=== PATIENT | female | born 1965 | race Caucasian/White ===

== ENCOUNTER → 2018-04-22 08:16 | Outpatient (CLI) | payer OTHER, SELFPAY ==
--- NOTE | 2018-04-22 08:19 | BI_ITS ---
MAMMOGRAPHY - BILATERAL SCREENING REASON FOR EXAM: Female, 52 years old. Routine annual screening examination. PERTINENT HISTORY: Grandmother with breast cancer. TECHNIQUE: Digital bilateral breast delisa (3D mammographic acquisition) in the CC and MLO projections. 2-D mediolateral oblique (MLO) and craniocaudad (CC) views of both breasts were obtained. CAD: Full Field Digital Mammography with Computer Added Detection was performed. COMPARISON: Comparison is made with prior study dated August 14, 2016 and May 19, 2015. FINDINGS: Breast Composition: The breasts are heterogeneously dense, which may obscure small masses. There are no dominant masses or suspicious calcifications. I suspect a 6.9 mm x 7.4 mm well-defined nodule in the retroareolar region of the left breast. Correlation with ultrasound is recommended. No other significant abnormalities are identified. BI/SCREENING MAMM (CAD), BILAT IMPRESSION: I suspect a 6.9 mm x 7.4 mm well-defined nodule in the retroareolar region of the left breast. Correlation with ultrasound is recommended. ASSESSMENT CATEGORY: BIRADS Category 0: Incomplete. Need additional imaging evaluation. A letter regarding these results will be sent to the patient by the facility within 30 days. Approximately 10% of breast cancers are not detected by mammography. A normal mammogram should not delay biopsy of a clinically suspicious abnormality. [id number] Electronically Signed: Arvind Clemens MD at 11:14 EDT Tel [phone], Service support ,
== END ==
PROVIDERS: Family Provider Family Medicine; PCP Family Medicine; Visit Provider Family Medicine
DX: Z12.31 Encounter for screening mammogram for malignant neoplasm of breast (principal)
CPT/HCPCS: 77063; 77067

== ENCOUNTER → 2018-04-27 10:53 | Outpatient (CLI) | payer OTHER, SELFPAY ==
--- NOTE | 2018-04-27 10:59 | US_ITS ---
STUDY: ULTRASOUND BREAST - LEFT REASON FOR EXAM: Female, 52 years old. Abnormal screening mammogram. TECHNIQUE: Axial and longitudinal images of the LEFT breast were performed with a high resolution ultrasound transducer. COMPARISON: Comparison is made with prior mammogram dated April 22, 2018. FINDINGS: LEFT Breast: There is evidence of dilated subareolar ducts. US/Breast Limited Unilateral IMPRESSION: Dilated subareolar ducts. ASSESSMENT CATEGORY: BIRADS Category 2: Benign. A letter regarding these results will be sent to the patient by the facility within 30 days. Electronically Signed: Arvind Clemens MD at 14:20 EDT Tel [phone], Service support ,
== END ==
PROVIDERS: Family Provider Family Medicine; PCP Family Medicine; Referring Provider Family Medicine; Visit Provider Family Medicine
DX: R92.8 Other abnormal and inconclusive findings on diagnostic imaging of breast (principal)
CPT/HCPCS: 76642

== ENCOUNTER → 2018-08-07 08:21 | Outpatient (CLI) | payer OTHER, SELFPAY ==
[2018-08-07 09:17] LABS: Absolute Lymphocyte Count 2.64 X10^3/ul (0.83-4.51); Absolute Neutrophil Count 3.8 X10^3/uL (2.0-7.7); Basophil# 0.03 X10^3/uL; Basophil% 0.4 % (0-1); Eosinophils% 4.1 % (0-5); Hematocrit 42.9 % (37-47); Hemoglobin 13.8 g/dl (12.0-15.0); Lymphocyte # 2.64 X10^3/ul (4.0); Lymphocyte % 36.2 % (19-41); Mean Corp Hgb Conc 32.2 g/gl (32-36); Mean Corpuscular Hgb 29.6 pg (27.0-32.0); Mean Corpuscular Volume 92.1 fL (81-99); Mean Platelet Vol. 10.5 fl (6.2-12.0); Monocyte# 0.57 X10^3/uL; Monocyte% 7.8 % (0-10); Neutrophil # 3.75 X10^3/uL (2.7-7.7); Neutrophil % 51.4 % (47-70); Platelet Count 294 K/mm3 (150-450); RBC Distribution Width CV 12.9 % (11.6-14.6); RBC Distribution Width SD 43.1 fl (35.1-43.9); Red Blood Count 4.66 M/mm3 (4.2-5.4); White Blood Count 7.3 K/mm3 (4.4-11.0)
[2018-08-07 09:18] LABS: POSITIVE COUNT NO; POSITIVE DIFFERENTIAL NO; POSITIVE MORPHOLOGY NO
[2018-08-07 09:30] LABS: Hemoglobin A1c 7.9 % (4.2-6.3)
[2018-08-07 09:41] LABS: ALB/GLOB Ratio 0.9 RATIO (0.9-2.4); AST(SGOT) 31 U/L (15-37); Alanine Aminotransfer ALT/SGPT 52 U/L (13-56); Albumin, Serum 3.6 g/dL (3.2-5.0); Alkaline Phosphatase 106 U/L (45-117); Anion Gap 6 (5-15); BUN 17 mg/dL (7-18); BUN/Creat Ratio 18.7 RATIO (10-20); Calcium,Total 8.6 mg/dL (8.5-10.1); Chloride 107 mmol/L (98-107); Cholesterol 269 mg/dL (200); Creatinine, Serum 0.91 mg/dL (0.55-1.02); EST Glomerular Filtration Rate 68 mL/min (>60); Est Glom Filt Rate - Afr Amer 82 mL/min (>60); Globulin 4.2 g/dL (2.2-4.2); Glucose 135 mg/dL (74-106); High Density Lipoprotein 41 mg/dL; Potassium 4.4 mmol/L (3.5-5.1); Protein, Total 7.8 g/dL (6.4-8.2); Sodium Level 140 mmol/L (136-145); Triglycerides 290 mg/dL; Very Low Density Lipoprotein 58 mg/dL (5-40)
== END ==
PROVIDERS: Family Provider Family Medicine; PCP Family Medicine; Referring Provider Family Medicine; Visit Provider Family Medicine
DX: E11.9 Type 2 diabetes mellitus without complications (principal); E78.5 Hyperlipidemia, unspecified; R53.83 Other fatigue; Z51.81 Encounter for therapeutic drug level monitoring
CPT/HCPCS: 36415; 80053; 80061; 83036; 85025

== ENCOUNTER → 2018-11-06 | Outpatient (CLI) | payer OTHER, SELFPAY ==
[2018-11-06 07:54] LABS: Cholesterol 279 mg/dL (200); High Density Lipoprotein 45 mg/dL; Triglycerides 249 mg/dL; Very Low Density Lipoprotein 50 mg/dL (5-40)
[2018-11-06 09:20] LABS: Hemoglobin A1c 6.9 % (4.2-6.3)
== END | disposition home or self-care (01) ==
PROVIDERS: Family Provider Family Medicine; PCP Family Medicine; Referring Provider Family Medicine; Visit Provider Family Medicine
DX: E78.5 Hyperlipidemia, unspecified (principal); E11.9 Type 2 diabetes mellitus without complications
CPT/HCPCS: 36415; 80061; 83036

== ENCOUNTER → 2019-06-24 07:52 | Outpatient (CLI) | payer OTHER, SELFPAY ==
--- NOTE | 2019-06-24 07:54 | BI_ITS ---
MAMMOGRAPHY - BILATERAL SCREENING REASON FOR EXAM: Female, 53 years old. Routine annual screening examination. PERTINENT HISTORY: Grandmother with breast cancer. TECHNIQUE: Digital bilateral breast chapincito (3D mammographic acquisition) in the CC and MLO projections. 2-D mediolateral oblique (MLO) and craniocaudad (CC) views of both breasts were obtained. CAD: Full Field Digital Mammography with Computer Added Detection was performed. COMPARISON: Comparison is made with prior mammogram dated April 22, 2018 and August 14, 2016. FINDINGS: Breast Composition: The breasts are heterogeneously dense, which may obscure small masses. There are no dominant masses or suspicious calcifications. Stable 7 mm well-defined nodule in the retroareolar region of the left breast prior ultrasound demonstrated this to be dilated retroareolar areolar ducts. No other significant abnormalities are identified. There has been no significant change since the prior study. BI/SCREEN MAMM (CAD) W/CHAPINCITO BILAT IMPRESSION: Stable bilateral screening mammogram. Yearly follow-up mammogram recommended. (A) ASSESSMENT CATEGORY: BIRADS Category 2: Benign. A letter regarding these results will be sent to the patient by the facility within 30 days. Approximately 10% of breast cancers are not detected by mammography. A normal mammogram should not delay biopsy of a clinically suspicious abnormality. [id number] Electronically Signed: Arvind Clemens, at 9:25 EST , Service support ,
== END ==
PROVIDERS: Family Provider Family Medicine; PCP Family Medicine; Referring Provider Family Medicine; Visit Provider Family Medicine
DX: Z12.31 Encounter for screening mammogram for malignant neoplasm of breast (principal)
CPT/HCPCS: 77063; 77067

== ENCOUNTER → 2020-05-24 08:11 | Outpatient (CLI) | payer OTHER, SELFPAY ==
[2020-05-24 12:26] LABS: Absolute Lymphocyte Count 2.45 X10^3/uL (0.83-4.51); Absolute Neutrophil Count 3.5 X10^3/uL (2.0-7.7); Basophil# 0.05 X10^3/uL; Basophil% 0.7 % (0-1); Eosinophil# 0.23 X10^3/uL; Eosinophils% 3.4 % (0-5); Hematocrit 41.9 % (37-47); Hemoglobin 13.5 g/dL (12.0-15.0); Lymphocyte # 2.45 X10^3/ul (4.0); Lymphocyte % 36.4 % (19-41); Mean Corp Hgb Conc 32.2 g/dL (32-36); Mean Corpuscular Hgb 30.3 pg (27.0-32.0); Mean Corpuscular Volume 93.9 fL (81-99); Mean Platelet Vol. 10.3 fl (6.2-12.0); Monocyte# 0.51 X10^3/uL; Monocyte% 7.6 % (0-10); NRBC Flagged by Analyzer 0 % (0-5); Neutrophil # 3.49 X10^3/uL (2.7-7.7); Neutrophil % 51.8 % (47-70); Platelet Count 324 K/mm3 (150-450); RBC Distribution Width SD 41.8 fl (35.1-43.9); Red Blood Count 4.46 M/mm3 (4.2-5.4); White Blood Count 6.7 K/mm3 (4.4-11.0)
[2020-05-24 12:58] LABS: AST(SGOT) 27 U/L (15-37); Alanine Aminotransfer ALT/SGPT 58 U/L (13-56); Albumin, Serum 3.7 g/dL (3.2-5.0); Alkaline Phosphatase 115 U/L (45-117); Anion Gap 5 (5-15); BUN 12 mg/dL (7-18); BUN/Creat Ratio 11.8 RATIO (10-20); Calcium,Total 8.8 mg/dL (8.5-10.1); Chloride 107 mmol/L (98-107); Cholesterol 300 mg/dL (200); Creatinine, Serum 1.02 mg/dL (0.55-1.02); EST Glomerular Filtration Rate 59 mL/min (>60); Est Glom Filt Rate - Afr Amer 72 mL/min (>60); Globulin 3.8 g/dL (2.2-4.2); Glucose 144 mg/dL (74-106); High Density Lipoprotein 36 mg/dL; Protein, Total 7.5 g/dL (6.4-8.2); Sodium Level 139 mmol/L (136-145); Triglycerides 417 mg/dL
== END ==
PROVIDERS: PCP Family Medicine; Visit Provider Family Medicine
DX: E11.9 Type 2 diabetes mellitus without complications (principal); R53.83 Other fatigue
CPT/HCPCS: 36415; 80053; 80061; 83036; 85025

== ENCOUNTER → 2020-06-27 08:00 | Outpatient (CLI) | payer OTHER, SELFPAY ==
--- NOTE | 2020-06-27 08:02 | BI_ITS ---
MAMMOGRAPHY - BILATERAL SCREENING REASON FOR EXAM: Female, 54 years old. Routine annual screening examination. PERTINENT HISTORY: Grandmother with breast cancer. TECHNIQUE: Digital bilateral breast chapincito (3D mammographic acquisition) in the CC and MLO projections. 2-D mediolateral oblique (MLO) and craniocaudad (CC) views of both breasts were obtained. CAD: Full Field Digital Mammography with Computer Added Detection was performed. COMPARISON: Comparison is made with prior study dated 06/24/2019 and 04/22/2018. FINDINGS: Breast Composition: The breasts are heterogeneously dense, which may obscure small masses. There are no dominant masses or suspicious calcifications. Stable 7 mm well-defined nodule in the retroareolar region of the left breast. Prior sonogram demonstrated left retroareolar ductal dilatation. No other significant abnormalities are identified. There has been no significant change since the prior study. BI/SCREEN MAMM (CAD) W/CHAPINCITO BILAT IMPRESSION: Stable bilateral screening mammogram. Yearly follow-up mammogram recommended. (A) ASSESSMENT CATEGORY: BIRADS Category 2: Benign. A letter regarding these results will be sent to the patient by the facility within 30 days. Approximately 10% of breast cancers are not detected by mammography. A normal mammogram should not delay biopsy of a clinically suspicious abnormality. [id number] Electronically Signed: Arvind Clemens, at 9:05 EST , Service support ,
== END ==
PROVIDERS: PCP Family Medicine; Referring Provider Family Medicine; Visit Provider Family Medicine
DX: Z12.31 Encounter for screening mammogram for malignant neoplasm of breast (principal)
CPT/HCPCS: 77063; 77067

== ENCOUNTER → 2020-09-14 09:37 | Outpatient (CLI) | payer OTHER, SELFPAY ==
[2020-09-14 12:12] LABS: Erythrocyte Sedimentation Rate 19 mm/hr (0-30)
[2020-09-14 12:36] LABS: CRP 6.14 mg/L (0.0-3.0); Cholesterol 351 mg/dL (200); High Density Lipoprotein 52 mg/dL; Rheumatoid Factor < 10.0 IU/mL (<15); Triglycerides 189 mg/dL; Very Low Density Lipoprotein 38 mg/dL (5-40)
[2020-09-15 15:24] LABS: ANTINUCLEAR ANTIBODIES DIRECT Negative (Negative)
[2020-09-19 08:49] LABS: CCP IgG Antibodies 10 units (0-19)
== END ==
PROVIDERS: PCP Family Medicine; Visit Provider Family Medicine
DX: E11.9 Type 2 diabetes mellitus without complications (principal); E78.5 Hyperlipidemia, unspecified; E78.1 Pure hyperglyceridemia; M25.50 Pain in unspecified joint
CPT/HCPCS: 36415; 80061; 85652; 86038; 86140; 86200; 86225; 86235; 86431

== ENCOUNTER 2020-09-22 20:33 | Outpatient (RCR) | payer OTHER, SELFPAY ==
[2020-09-22] MEDS: COVID-19 VACC, MRNA(PFIZER)/PF 30 MCG/0.3 ML SYRINGE IM (09:41)
[2020-10-13] MEDS: COVID-19 VACC, MRNA(PFIZER)/PF 30 MCG/0.3 ML SYRINGE IM (09:20)
== END 2020-09-22 23:59 ==
LOC: IMMUN 20:33
PROVIDERS: PCP Family Medicine; Visit Provider Family Medicine
DX: Z23 Encounter for immunization (principal)
CPT/HCPCS: 0001A; 0002A; 91300

== ENCOUNTER 2021-08-31 08:09 | Outpatient (CLI) | payer OTHER, SELFPAY ==
--- NOTE | 2021-08-31 08:23 | BI_ITS ---
MAMMOGRAPHY - BILATERAL SCREENING REASON FOR EXAM: Female, 56 years old. Routine annual screening examination. PERTINENT HISTORY: Grandmother with breast cancer. TECHNIQUE: Digital bilateral breast chapincito (3D mammographic acquisition) in the CC and MLO projections. 2-D mediolateral oblique (MLO) and craniocaudad (CC) views of both breasts were obtained. CAD: Full Field Digital Mammography with Computer Added Detection was performed. COMPARISON: Comparison is made with prior study dated 06/27/2020 and 06/24/2019. FINDINGS: Breast Composition: The breasts are heterogeneously dense, which may obscure small masses. There are no dominant masses or suspicious calcifications. Stable small benign-appearing bilateral axillary lymph nodes. No other significant abnormalities are identified. There has been no significant change since the prior study. BI/SCRN MAMM (CAD)W/CHAPINCITO BILAT IMPRESSION: Stable bilateral screening mammogram. Yearly follow-up mammogram recommended. (A) ASSESSMENT CATEGORY: BIRADS Category 2: Benign. A letter regarding these results will be sent to the patient by the facility within 30 days. Approximately 10% of breast cancers are not detected by mammography. A normal mammogram should not delay biopsy of a clinically suspicious abnormality. [id number] Electronically Signed: Arvind Clemens MD at 10:36 EST ,
== END 2021-08-31 23:59 | disposition home or self-care (01) ==
LOC: OPBI 08:21
PROVIDERS: PCP Family Medicine; Referring Provider Family Medicine; Visit Provider Family Medicine
DX: Z12.31 Encounter for screening mammogram for malignant neoplasm of breast (principal)
CPT/HCPCS: 77063; 77067

== ENCOUNTER 2021-11-21 12:16 | Day surgery (SDC) | payer OTHER, SELFPAY ==
[2021-11-21] MEDS: Lactated Ringers 1,000 ML 15 ML IV (12:40)
[2021-11-21 12:56] VITALS: BP 137/95; PULSE 81; RESP 17; TEMP 36.9; O2SAT 98; BMI 23.8
--- NOTE | 2021-11-21 12:57 | PCM.HP.BLA ---
History and Physical Date of Admission: 11/21/21 Date of Service: 11/01/21 MR#:[id number]:[id number]: JOAQUÍN STEIN #:[id number]:1965 Provider:Ivette Trujillo/Sex: 56/F [facility] Int[facility] Vital Signs 11/01/21 13:12 Height 5 ft 1 in Weight: 131 lb 8 oz BMI 24.8 BP 133/86 H Blood Pressure Location Rt brachial Position Sitting Respiration 18 Pulse 96 Pulse Source NIBP Temp 98.2 F Temp Source Temporal Pulse Oximetry (%) 97 Oxygen Delivery Method room air Intake Visit Reasons: Upper/Lower Scope acid reflux Chief Complaint: GERD/ screening c-scope Strapper And Buffer Required: No Is patient in pain?: No Allergies chlorpromazine HCl [From Thorazine] Adverse Reaction (Verified 11/01/21 13:12) Other prochlorperazine edisylate [From Compazine] Adverse Reaction (Verified 11/01/21 13:12) Other prochlorperazine maleate [From Compazine] Adverse Reaction (Verified 11/01/21 13:12) Other Medications omega-3 fatty acids-fish oil [Fish Oil] 1 ea PO DAILY 06/17/14 [History Confirmed 11/01/21] bismuth subsalicylate 525 mg/15 mL oral suspension 525 mg PO Q30-60M PRN 11/01/21 [History Confirmed 11/01/21] gemfibrozil 600 mg tablet 600 mg PO BID tab 11/01/21 [History Confirmed 11/01/21] metformin 500 mg tablet 500 mg PO BID tab 11/01/21 [History Confirmed 11/01/21] omeprazole 20 mg-sodium bicarbonate 1,680 mg oral packet 1 packet PO DAILY 11/01/21 [History Confirmed 11/01/21] omeprazole 40 mg capsule,delayed release 40 mg PO QDAY #30 cap 11/01/21 [Rx Confirmed 11/01/21] Is last menstrual period known: No Post menopausal: Yes Patient : No PFSH Medical History (Updated 11/02/21 @ 09:[address] Marcie Bui MD) Back pain Diabetes GERD (gastroesophageal reflux disease) Surgical History (Updated 11/01/21 @ 13:10 by Lavinia Benjamin) History of carpal tunnel release History of cholecystectomy History of esophagogastroduodenoscopy (EGD) History of tonsillectomy Family History (Updated 11/01/21 @ 13:11 by Lavinia Benjamin) Mother Asthma Diabetes Thyroid disorder Brother Diabetes Sister Diabetes Hypertension Thyroid disorder Lupus (systemic lupus erythematosus) Father Diabetes CVA (cerebral vascular accident) Social History Smoking Status: Never smoker HPI HPI HPI: JOAQUÍN KEITH, is a 56 F who presents to the office today for EGD & colonoscopy. Patient states that she had an EGD maybe 25 years ago and was put on Aciphex at that time but that did not help so she stopped taking it. Patient is currently taking Zegerid and Pepto updb-glp-yddiiyd. Patient does not take the Zegrid every day but will take it multiple times on some days. Patient states she drinks a bottle of Pepto in about a week. Patient also has sleep with her head elevated due to epigastric pain/burning of her esophagus?typically occurs after eating. Patient states she does have nausea most days. Patient states her PCP tried to send her in some PPI however her insurance did not approve that she has only been taking dyya-cla-tyldylv stuff. Patient is never had a previous colonoscopy. Denies any family history of colon cancer. Patient has bowel movements daily denies any blood. Patient did have her COVID vaccine booster in June. ROS General General: No weight change, appetite, fatigue, colon cancer, breast cancer or weakness HEENT HEENT: No difficulty swallowing, eye injury, eye surgery, swollen glands or hoarseness Endo Endocrine: Yes diabetes mellitus; No thyroid disease, thyroid cancer, Hair loss, heat intolerance or cold intolerance Skin Skin: No rash or changing moles Musc Musculoskeletal: Yes back problems and arthritis; No rheumatoid arthritis or gout Cardio Cardiovascular: No chest pain Psych Psychiatric: No depression or anxiety Resp Respiratory: No shortness of breath and No cough Gastro Gastrointestinal: Yes abdominal pain (occasionally), No nausea or vomiting, No diarrhea, No constipation, No blood in stool, Yes acid reflux, No hemorrhoids, No ulcers, No gallbladder problem and No black,tarry stools Neuro Neurologic: No weakness Exam Const General: cooperative, healthy appearing, comfortable and no acute distress Neck Neck: normal visual inspection Resp Effort & Inspection: normal respiratory effort Cardio Rate: regular rate GI Inspection: non-distended Palpation: soft, no guarding and tender in the epigastrum (mild) Skin General: no rashes or lesions noted Neuro General: patient oriented x3 Psych Affect: normal affect Assessment and Plan Assessment and Plan (1) GERD (gastroesophageal reflux disease): Status: Acute (2) Screening for colon cancer: Status: Acute Plan - Dr. Marcie Bui MD: Did send omeprazole into patient's pharmacy 40 mg p.o. daily as patient to let us know if she is able to get this-- as her Zegrid is quite expensive, also discussed the patient she can get the generic just omeprazole hsep-ond-aglkrgz as well which is cheaper. Also recommend her try famotidine instead of the Pepto for breakthrough. I have discussed the above with the patient. I have offered the patient EGD and colonoscopy for evaluation. I have explained the risks/benefits of the procedure and described the procedure. I have discussed the risks with the patient, including but not limited to: infection, bleeding, perforation of the GI tract requiring emergency surgery, inability to complete the procedure, injury to any internal organs, complications of anesthesia, etc. - the patient understands and agrees to proceed. I have answered all the patient's questions to the patient's satisfaction and the patient has no further questions. The patient has been given instructions for the colon cleansing preparation. 1 day of clears MiraLAX Dulcolax split prep. Marcie Bui M.D. Pager: [phone] [facility] [address] [place] [address], [address] [place] [address] Office: [phone] Plan Details Other Medications: New: omeprazole swallow whole; do not crush, chew, dissolve, cut, break 40 mg PO QDAY 30 caps 4RF Coding Level of Care Code Off vis,new,level 3 Diagnoses GERD (gastroesophageal reflux disease) K21.9 Screening for colon cancer Z12.11 11/02/21 0940<Electronically signed by Marcie Bui MD>Date Marcie Bui MD
[2021-11-21 13:06] LABS: Bedside Glucose 122 mg/dL (74-106)
--- NOTE | 2021-11-21 13:30 | IMM_PTH ---
PATIENT: JOAQUÍN STEIN LOC: EN U#:[id number] AGE/SX: 56/F ROOM: RE11/21/[address]: Dr. Marcie Bui MD : 1965 BED: DIS: 11/21/2021 SPEC #: [id number] RECD: 11/22/21 10:30 STATUS: NOREEN REQ #: [id number] KERI: 11/21/21 13:[address]: Marcie Bui DEPT: IMMUNOHISTOCHEMISTRY RECD BY: Jayda Bee ENTERED: 11/22/21 10:31 SP TYPE: IMMUNO OTHR DR: Dr. Tanika Caban, DO Tissues: A - Stomach, NOS Procedures: H Pylori (initial) PHYSICIAN & INSTITUTION [place] [address] SPECIMEN INFORMATION: Tissue Source: A ? Antrum biopsy Clinical Info: GERD, screening Specimen Number: [id number] CPT code: 23688 METHODOLOGY: Deparaffinized sections of prefer/formalin-fixed tissue or PAP/DQ stained slides are incubated with monoclonal/polyclonal antibodies/oligonucleotide probes. Localization is made via biotin free immunoperoxidase method. Appropriate controls are performed and reacted as expected. Results on target cell population are indicated in the following table: RESULTS: ANTIBODY / CLONE RESULT Block A H Pylori (polyclonal) negative These tests were developed and their performance characteristics determined by [facility]. They may not have been cleared or approved by the U.S. Food and Drug Administration. The FDA has determined that such clearance or approval is not necessary. The above immunohistochemical/dualISH markers are ordered and reviewed by the Pathologist. INTERPRETATION: A. Antrum, biopsy: Negative for Helicobacter pylori organisms. AM:armando 11/23/2021
--- NOTE | 2021-11-21 13:30 | EGD_PTH ---
PATIENT: JOAQUÍN STEIN LOC: EN U#:[id number] AGE/SX: 56/F ROOM: RE11/21/[address]: Dr. Marcie Bui MD : 1965 BED: DIS: 11/21/2021 SPEC #: [id number] RECD: 11/21/21 14:33 STATUS: NOREEN REJose #: [id number] KERI: 11/21/21 13:[address]: Marcie Bui DEPT: SURGICAL PATHOLOGY RECD BY: Sammie Saavedra ENTERED: 11/22/21 07:36 SP TYPE: EGD BIOPSY OT DR: Dr. Tanika Caban, DO Tissues: A - Gastric mucous membrane B - Stomach, NOS Procedures: Special Stain Group II Surgery Specimen Level IV Alcian Blue/PAS (control) HEADER OPERATION: Colonoscopy, EGD ([facility]) with biopsies PRE-OP DIAGNOSIS: GERD, screening TISSUE SUBMITTED: A ? Antrum biopsy for H. pylori and path, B ? GE junction biopsy MICROSCOPIC DIAGNOSIS A. Gastric antrum, biopsy: Chronic gastritis. See comment. B. Gastroesophageal junction, biopsy: No evidence of goblet cell metaplasia. See comment. AM:armando 11/23/2021 COMMENT A. The results of immunohistochemistry for Helicobacter pylori will be reported separately ([id number]). B. Alcian blue/PAS stain with matched control supports the above diagnosis. MICROSCOPIC DESCRIPTION Slides are reviewed. GROSS DESCRIPTION A - Received in fixative is one container labeled with the patient's name and designated antrum biopsy. The specimen consists of one irregular fragment of light pardo soft tissue that measures 0.5 x 0.3 x 0.1 cm. The specimen is totally submitted in one cassette. B - Received in fixative is one container labeled with the patient's name and designated GE junction biopsy. The specimen consists of one irregular fragment of light pardo soft tissue that measures 0.3 x 0.3 x 0.1 cm. The specimen is totally submitted in one cassette. / FRANNY:armando 11/22/2021 TC:3 CPT: 80570 x2, 09797
[2021-11-21 14:15] VITALS: BP 137/95; BP 142/85; PULSE 89; RESP 16; TEMP 36.7; O2SAT 100
--- NOTE | 2021-11-21 14:15 | OP.EGD_ITS ---
Patient Name: Cristina Fonseca Procedure Date: 11/21/2021 1:36 PM Date of : 1965 Age: 56 Procedure: Upper GI endoscopy Indications: Suspected esophageal reflux Providers: Marcie Bui MD Medicines: Monitored Anesthesia Care Patient Profile: This is a 56 year old female. Complications: No immediate complications. Procedure: Pre-Anesthesia Assessment: - Prior to the procedure, a History and Physical was performed, and patient medications and allergies were reviewed. The patient's tolerance of previous anesthesia was also reviewed. The risks and benefits of the procedure and the sedation options and risks were discussed with the patient. All questions were answered, and informed consent was obtained. Prior Anticoagulants: The patient has taken no previous anticoagulant or antiplatelet agents. ASA Grade Assessment: Per anesthesia. After reviewing the risks and benefits, the patient was deemed in satisfactory condition to undergo the procedure. After obtaining informed consent, the endoscope was passed under direct vision. Throughout the procedure, the patient's blood pressure, pulse, and oxygen saturations were monitored continuously. The Colonoscope was introduced through the mouth, and advanced to the second part of duodenum. The upper GI endoscopy was accomplished without difficulty. The patient tolerated the procedure well. Scope In: 1:44:03 PM Scope Out: 1:51:07 PM Total Procedure Duration Time 0 hours 7 minutes 4 seconds Findings: The Z-line was variable. Biopsies were taken with a cold forceps for histology. Biopsies were taken with a cold forceps for histology. Diffuse mildly erythematous mucosa without bleeding was found in the gastric antrum. Biopsies were taken with a cold forceps for histology. Biopsies were taken with a cold forceps for Helicobacter pylori cultures. The examined duodenum was normal. The cardia and gastric fundus were normal on retroflexion. Impression: - Z-line variable. Biopsied. - Erythematous mucosa in the antrum. Biopsied. - Normal examined duodenum. Recommendation: - Await pathology results. - Discharge patient to home. - Resume previous diet. - Continue present medications. Procedure Code(s): --- Professional --- 58717, Esophagogastroduodenoscopy, flexible, transoral; with biopsy, single or multiple Diagnosis Code(s): --- Professional --- K22.8, Other specified diseases of esophagus K31.89, Other diseases of stomach and duodenum CPT copyright 2017 [employer]. All rights reserved. The codes documented in this report are preliminary and upon die developer review may be revised to meet current compliance requirements. MD Marcie Lafleur MD 11/21/2021 2:15:44 PM This report has been signed electronically. Number of Addenda: 0 Note Initiated On: 11/21/2021 1:36 PM
--- NOTE | 2021-11-21 14:16 | OP.CCLET_ITS ---
11/21/2021 Tanika Caban [address] [place] [address] Re : Upper GI endoscopy procedure for Cristina Gao Raymundo Dear Dr. Caban This procedure was performed on Sunday, November 21, 2021. My impressions and recommendations are as follows: Impressions : - Z-line variable. Biopsied. - Erythematous mucosa in the antrum. Biopsied. - Normal examined duodenum. Recommendations : - Await pathology results. - Discharge patient to home. - Resume previous diet. - Continue present medications. My findings are described in the full procedure note, which is enclosed. If I can be of further assistance, please feel free to contact me at Doctor phone number(s): , Work: . Sincerely, MD Marcie Lafleur MD 11/21/2021 2:15:44 PM This report has been signed electronically.
[2021-11-21 14:20] VITALS: BP 137/95; BP 138/88; PULSE 87; RESP 16; O2SAT 100
--- NOTE | 2021-11-21 14:20 | OP.COLON_ITS ---
Patient Name: Cristina Fonseca Procedure Date: 11/21/2021 1:51 PM Date of : 1965 Age: 56 Procedure: Colonoscopy Indications: Screening for colorectal malignant neoplasm Providers: Marcie Bui MD Medicines: Monitored Anesthesia Care Patient Profile: This is a 56 year old female. Last Colonoscopy: none. The patient's first colonoscopy is today. Complications: No immediate complications. Procedure: Pre-Anesthesia Assessment: - Prior to the procedure, a History and Physical was performed, and patient medications and allergies were reviewed. The patient's tolerance of previous anesthesia was also reviewed. The risks and benefits of the procedure and the sedation options and risks were discussed with the patient. All questions were answered, and informed consent was obtained. Prior Anticoagulants: The patient has taken no previous anticoagulant or antiplatelet agents. ASA Grade Assessment: Per anesthesia. After reviewing the risks and benefits, the patient was deemed in satisfactory condition to undergo the procedure. After I obtained informed consent, the scope was passed under direct vision. Throughout the procedure, the patient's blood pressure, pulse, and oxygen saturations were monitored continuously. The Colonoscope was introduced through the anus and advanced to the cecum, identified by the appendiceal orifice, ileocecal valve and palpation. The colonoscopy was performed without difficulty. The patient tolerated the procedure well. The quality of the bowel preparation was good. Scope In: 1:52:14 PM Scope Withdrawal Time 0 hours 11 minutes 28 seconds Scope Out: 2:11:31 PM Total Procedure Duration Time 0 hours 19 minutes 17 seconds Findings: The perianal and digital rectal examinations were normal. The entire examined colon appeared normal on direct and retroflexion views. Impression: - The entire examined colon is normal on direct and retroflexion views. - No specimens collected. Recommendation: - Discharge patient to home. - Resume previous diet. - Continue present medications. - Repeat colonoscopy in 10 years for screening purposes. Procedure Code(s): --- Professional --- G0121, PT, Colorectal cancer screening; colonoscopy on individual not meeting criteria for high risk Diagnosis Code(s): --- Professional --- Z12.11, Encounter for screening for malignant neoplasm of colon CPT copyright 2017 [employer]. All rights reserved. The codes documented in this report are preliminary and upon trading floor operator review may be revised to meet current compliance requirements. MD Marcie Lafleur MD 11/21/2021 2:19:51 PM This report has been signed electronically. Number of Addenda: 0 Note Initiated On: 11/21/2021 1:51 PM
--- NOTE | 2021-11-21 14:21 | OP.CCLET_ITS ---
11/21/2021 Tanika Caban [address] [place] [address] Re : Colonoscopy procedure for Cristina Gao Raymundo Dear Dr. Caban This procedure was performed on Sunday, November 21, 2021. My impressions and recommendations are as follows: Impressions : - The entire examined colon is normal on direct and retroflexion views. - No specimens collected. Recommendations : - Discharge patient to home. - Resume previous diet. - Continue present medications. - Repeat colonoscopy in 10 years for screening purposes. My findings are described in the full procedure note, which is enclosed. If I can be of further assistance, please feel free to contact me at Doctor phone number(s): , Work: . Sincerely, MD Marcie Lafleur MD 11/21/2021 2:19:51 PM This report has been signed electronically.
[2021-11-21 14:30] VITALS: BP 131/83; BP 137/95; PULSE 82; RESP 16; O2SAT 99
[2021-11-21 14:37] VITALS: BP 137/95; BP 138/85; PULSE 83; RESP 16; TEMP 36.9; O2SAT 100
[2021-11-21 14:56] VITALS: BP 137/95
== END 2021-11-21 15:03 | disposition home or self-care (01) ==
LOC: EN 12:28 → AC 12:56
PROVIDERS: PCP Family Medicine; Referring Provider Family Medicine; Visit Provider Surgery
PROC: 0DJD8ZZ Inspection of Lower Intestinal Tract, Via Natural or Artificial Opening Endoscopic (ICD-10-PCS; CPT 45378; principal; 2021-11-21 13:25)
DX: Z12.11 Encounter for screening for malignant neoplasm of colon (principal); E11.9 Type 2 diabetes mellitus without complications; K21.9 Gastro-esophageal reflux disease without esophagitis; Z79.84 Long term (current) use of oral hypoglycemic drugs; K31.89 Other diseases of stomach and duodenum; K22.89 Other specified disease of esophagus; K29.70 Gastritis, unspecified, without bleeding
CPT/HCPCS: 45378; 43239; 82962; 88305; 88313; 88342; J7120

== ENCOUNTER → 2022-06-14 | Outpatient (CLI) | payer OTHER, SELFPAY ==
--- NOTE | 2022-06-14 10:40 | RAD_ITS ---
INDICATION: RADICULOPATHY EXAMINATION/TECHNIQUE: X-RAY - XR Spine Lumbar Min 4 Views COMPARISON: None. FINDINGS: VERTEBRAE: Preserved vertebral body height. No fracture. No spondylolisthesis. Preservation of the normal lumbar lordosis. No significant facet arthropathy. DISCS: Disc spaces are maintained. INCLUDED ABDOMEN: Included bowel gas pattern is non-obstructive. RAD/L/S Spine Min 4 Views IMPRESSION: No evidence of lumbar spinal fracture or spondylolisthesis. Electronically Signed: Efra Pastrana MD at 18:48 EST ,
== END | disposition home or self-care (01) ==
PROVIDERS: PCP Family Medicine; Referring Provider Family Medicine; Visit Provider Family Medicine
DX: M54.17 Radiculopathy, lumbosacral region (principal)
CPT/HCPCS: 72110

== ENCOUNTER → 2022-07-24 | Outpatient (CLI) | payer OTHER, SELFPAY ==
--- NOTE | 2022-07-24 11:14 | NEURO ---
NCS and/or EMG Patient Report Ordering Doctor: Tanika Caban DATE OF SERVICE: 07/24/22 Cristina presents for electrodiagnostic testing of the lower limbs. She reports intermittent low back pain with cramping in the lower legs. She reports intermittent numbness in the legs. Electrodiagnostic findings: Peroneal motor nerve demonstrates normal distal latency, amplitude and conduction velocity bilaterally. Normal tibial motor response bilaterally. Sensory responses are within normal limits. Normal tibial and peroneal F-waves. H-reflex borderline prolonged on the left side. On needle EMG, all muscles tested in the lower limbs showed no evidence of denervation with normal motor unit action potentials. Electrodiagnostic impression: This is a normal electrodiagnostic study in the lower limbs. There is no electrodiagnostic evidence for peripheral polyneuropathy or lumbosacral radiculopathy.
== END | disposition home or self-care (01) ==
PROVIDERS: PCP Family Medicine; Referring Provider Family Medicine; Visit Provider Family Medicine
DX: R20.2 Paresthesia of skin (principal)
CPT/HCPCS: 95886; 95911

== ENCOUNTER → 2022-12-05 | Outpatient (CLI) | payer OTHER, SELFPAY ==
--- NOTE | 2022-12-05 08:47 | BI_ITS ---
MAMMOGRAPHY - BILATERAL SCREENING REASON FOR EXAM: Female, 57 years old. Routine annual screening examination. PERTINENT HISTORY: Grandmother with breast cancer. TECHNIQUE: Digital bilateral breast chapincito (3D mammographic acquisition) in the CC and MLO projections. 2-D mediolateral oblique (MLO) and craniocaudad (CC) views of both breasts were obtained. CAD: Full Field Digital Mammography with Computer Added Detection was performed. COMPARISON: Comparison is made with prior study dated August 31, 2021 and June 27, 2020. FINDINGS: Breast Composition: The breasts are heterogeneously dense, which may obscure small masses. There are no dominant masses or suspicious calcifications. Stable small benign-appearing bilateral axillary lymph nodes. No other significant abnormalities are identified. There has been no significant change since the prior study. BI/SCRN MAMM (CAD)W/CHAPINCITO BILAT IMPRESSION: Stable bilateral screening mammogram. Yearly follow-up mammogram recommended. (A) ASSESSMENT CATEGORY: BIRADS Category 2: Benign. A letter regarding these results will be sent to the patient by the facility within 30 days. Approximately 10% of breast cancers are not detected by mammography. A normal mammogram should not delay biopsy of a clinically suspicious abnormality. [id number] Electronically Signed: Arvind Clemens MD at 9:38 EDT ,
== END | disposition home or self-care (01) ==
LOC: OPBI 08:46
PROVIDERS: PCP Family Medicine; Referring Provider Family Medicine; Visit Provider Family Medicine
DX: Z12.31 Encounter for screening mammogram for malignant neoplasm of breast (principal)
CPT/HCPCS: 77063; 77067

== ENCOUNTER → 2023-12-11 | Outpatient (CLI) | payer OTHER, SELFPAY ==
--- NOTE | 2023-12-11 08:51 | BI_ITS ---
MAMMOGRAPHY - BILATERAL SCREENING REASON FOR EXAM: Female, 58 years old. Routine annual screening examination. PERTINENT HISTORY: Sister with breast cancer. TECHNIQUE: Digital bilateral breast chapincito (3D mammographic acquisition) in the CC and MLO projections. 2-D mediolateral oblique (MLO) and craniocaudad (CC) views of both breasts were obtained. CAD: Full Field Digital Mammography with Computer Added Detection was performed. COMPARISON: None. FINDINGS: Breast Composition: The breasts are heterogeneously dense, which may obscure small masses. There are no dominant masses or suspicious calcifications. No other significant abnormalities are identified. There has been no significant change since the prior study. BI/SCRN MAMM (CAD)W/CHAPINCITO BILAT IMPRESSION: Stable bilateral screening mammogram. Yearly follow-up mammogram recommended. (A) ASSESSMENT CATEGORY: BIRADS Category 2: Benign. A letter regarding these results will be sent to the patient by the facility within 30 days. Approximately 10% of breast cancers are not detected by mammography. A normal mammogram should not delay biopsy of a clinically suspicious abnormality. [id number] Electronically Signed: Arvind Clemens MD at 10:11 EDT ,
== END | disposition home or self-care (01) ==
LOC: OPBI 08:50
PROVIDERS: PCP Family Medicine; Referring Provider Family Medicine; Visit Provider Family Medicine
DX: Z12.31 Encounter for screening mammogram for malignant neoplasm of breast (principal); Z80.3 Family history of malignant neoplasm of breast
CPT/HCPCS: 77063; 77067

== ENCOUNTER → 2024-11-18 | Outpatient (CLI) | payer OTHER, SELFPAY | END | disposition home or self-care (01) | LOC: LABSPEC 12:20 | PROVIDERS: PCP Family Medicine; Referring Provider Nurse Practitioner Family; Visit Provider Nurse Practitioner Family | DX: N39.0 Urinary tract infection, site not specified (principal) | CPT/HCPCS: 87086; 87088 ==

== ENCOUNTER → 2024-12-15 | Outpatient (CLI) | payer OTHER, SELFPAY ==
--- NOTE | 2024-12-15 10:27 | BI_ITS ---
EXAM: SCRN MAMM (CAD)W/CHAPINCITO BILAT 12/15/2024 CLINICAL HISTORY: F, Age 59 y/o , SCREENING TECHNIQUE: Bilateral screening digital breast tomosynthesis with 2D and 3D images. Computer aided detection. COMPARISON: Prior exam(s) dated 12/11/2023, 12/05/2022, 08/31/2021. FINDINGS: TISSUE DENSITY: The breast tissue is heterogenously dense, which may obscure small masses. The mammogram demonstrates that the patient has dense breasts. Supplemental screening with whole breast ultrasound or MRI may be considered for further evaluation. Bilateral Breast Mammographic Findings: No significant masses, calcifications or other abnormalities are identified. BI/SCRN MAMM (CAD)W/CHAPINCITO BILAT IMPRESSION: Right Breast: BIRADS 1 NEGATIVE. Left Breast: BIRADS 1 NEGATIVE. OVERALL FINAL ASSESSMENT: BIRADS 1 NEGATIVE. RECOMMENDATION: Routine annual follow-up in 1 Year A letter with findings and recommendations will be mailed to the patient. Reading Location: [id number]
== END | disposition home or self-care (01) ==
LOC: OPBI 10:26
PROVIDERS: PCP Family Medicine; Referring Provider Family Medicine; Visit Provider Family Medicine
DX: Z12.31 Encounter for screening mammogram for malignant neoplasm of breast (principal)
CPT/HCPCS: 77063; 77067